=== PATIENT | male | born 1945 | race Caucasian/White ===

== ENCOUNTER 2021-05-25 12:00 | Inpatient (IN) | payer MEDICARE, OTHER ==
[~2021-05-25] VITALS: Ht 175.3 cm; Wt 86.7 kg
[~2021-05-25 12:00] MED LIST: ASPI-614 PO; ATOR20TA37 PO; CALC-455 PO; LISI40TA9 PO; LORA-439 PO; LORA-59 PO; OMEP40CA8 PO; RANI150C PO; SAW450CA7 PO; SIMV20TA19 PO; iron PO
[2021-05-25] MEDS ORDERED: SODIUM CHLORIDE FLUSH 10ML SYR IVF ONE (13:00)
[2021-05-25 13:14] LABS: BASOPHILS % (AUTO) 0 % (0-1); EOSINOPHILS % (AUTO) 0 % (1-7); LYMPHOCYTES % (AUTO) 5 % (22-44); MEAN CORPUSCULAR HEMOGLOBIN 34.3 pg (27.5-34.5); MEAN CORPUSCULAR HGB CONC 33.8 g/dL (33.2-36.2); MEAN PLATELET VOLUME 9.4 fL (7.4-10.4); MONOCYTES % (AUTO) 6 % (2-9); NEUTROPHILS % (AUTO) 89 % (42-75); PLATELET COUNT 129 x10^3/uL (130-400); RED BLOOD COUNT 3.63 x10^6/uL (4.38-5.82); RED CELL DISTRIBUTION WIDTH 16.2 % (9.4-14.8)
[2021-05-25 13:22] LABS: ALANINE AMINOTRANSFERASE 39 U/L (12-78); ALBUMIN 2.5 g/dL (3.4-5.0); ANION GAP 15 mmol/L (5-15); CALCIUM 9.2 mg/dL (8.5-10.1); CHLORIDE 107 mmol/L (98-107)
[2021-05-25 13:25] LABS: ALKALINE PHOSPHATASE 104 U/L (45-117); BILIRUBIN,TOTAL 4.4 mg/dL (0.2-1.0); CREATININE 1.27 mg/dL (0.7-1.3); TOTAL PROTEIN 7.9 g/dL (6.4-8.2)
[2021-05-25] MEDS ORDERED: SODIUM CHLORIDE 0.9% 1,000ML IVBOLUS ONE ×2 (13:30→15:30)
[2021-05-25] MEDS ORDERED: LORazepam 2 MG/ML, 1ML ONE ×2 (13:41→16:04)
[2021-05-25] MEDS ORDERED: PANTOPRAZOLE 40 MG IV ONE (13:42)
--- NOTE | 2021-05-25 13:47 | NUR ---
MEDICATED PER EMAR TO CT SCAN
[2021-05-25] MEDS ORDERED: LORazepam 2 MG/ML, 1ML IVPush ONE ×2 (14:00→16:00)
[2021-05-25] MEDS ORDERED: PANTOPRAZOLE 40 MG IV IVPush ONE (14:00)
[2021-05-25] MEDS ORDERED: SODIUM CHLORIDE 0.9%, 500ML IVBOLUS ONE (14:00)
--- NOTE | 2021-05-25 14:36 | NUR ---
WITH REASSESSMENT SHAKINESS/NAUSEA TOTALLY IMPROVED, 500ML NS COMPLETE PATIENT REMINDED OF NEED FOR [id number] UNABLE TO VOID-ERP AWARE
[2021-05-25] MEDS ORDERED: OMNIPAQUE 350 MG/ML, 100ML BOTTLE ONE (14:52)
--- NOTE | 2021-05-25 15:24 | NUR ---
PATIENT UP TO RESTROOM-MIKE BLACK STOOL-ERP AWARE
[2021-05-25] MEDS ORDERED: POTASSIUM CHLORIDE 20 MEQ, MAGNESIUM SULFATE 1 GM, MVI ADULT 10 ML, THIAMINE 200 MG, FO... IV ONE (16:00)
[2021-05-25] MEDS ORDERED: THIAMINE 100 MG in SODIUM CHLORIDE 0.9% 50 ML IV SCH (16:00)
[2021-05-25] MEDS ORDERED: THIAMINE 100 MG/ML, 2ML ONE ×2 (16:05→16:53)
--- NOTE | 2021-05-25 16:10 | NUR ---
DR. JUAN AT BEDSIDE TO ADMIT
[2021-05-25] MEDS ORDERED: MVI ADULT 10 ML, FOLIC ACID 1 MG, THIAMINE 100 MG, MAG SULFATE 4 MEQ, POTASSIUM CHLORID... IV SCH (16:30)
[2021-05-25] MEDS ORDERED: THIAMINE 200 MG in DEXTROSE 5% 50 ML IVPB ONE (16:30)
[2021-05-25] MEDS ORDERED: LORazepam 2 MG/ML, 1ML IV PRN ×4 (16:30)
[2021-05-25] MEDS ORDERED: LORazepam 1MG TABLET PO PRN ×4 (16:30)
[2021-05-25] MEDS ORDERED: hydrALAzine 20 MG/ML, 1ML IVPush PRN (16:30)
[2021-05-25] MEDS ORDERED: LABETALOL 5MG/ML, 20ML IVPush PRN (16:30)
[2021-05-25] MEDS ORDERED: ONDANSETRON 2MG/ML, 2ML IV PRN (16:30)
[2021-05-25] MEDS ORDERED: DIAZEPAM 5 MG TABLET ONE ×2 (16:53→17:02)
[2021-05-25] MEDS: DIAZEPAM 5 MG TABLET PO SCH ×2 (17:03→22:53)
[2021-05-25 17:13] LABS: INTERNATIONAL NORMALIZED RATIO 1.7 (0.93-1.1); PROTHROMBIN TIME 17.7 Seconds (9.6-11.5)
--- NOTE | 2021-05-25 18:51 | NUR ---
RECIEVED REPORT FROM WILMAR MEZA
--- NOTE | 2021-05-25 19:00 | NUR ---
patient transferred to hospital bed report to you mckeon
--- NOTE | 2021-05-25 19:10 | NUR ---
roughy 600ml of tarry stool noted from multiple bms while in er (notated in i/os)
--- NOTE | 2021-05-25 20:00 | NUR ---
PATIENT WAS UP TO BEDSIDE CAMMODE WITHOUT ASSISTANCE. PATIENT WAS ASSISTED BACK INTO BED AND BED ALARM WAS SET. PATIENT INSTRUCTED TO CALL WHEN HE NEEDS TO GET UP.
--- NOTE | 2021-05-25 20:26 | NUR ---
PATIENT OOB ON OWN, INSTURCTED ONCE AGAIN TO CALL FOR ASSISTANCE AND NOT GET UP ON OWN. PATIENT VERBALIZED HIS UNDERSTANDING.
--- NOTE | 2021-05-25 20:30 | NUR ---
attempt x1 to call saige for report.
--- NOTE | 2021-05-25 20:52 | NUR ---
Pt to be admitted to tele 2, room 491-1. Report called to Alee.
[2021-05-25 21:45] VITALS: BP 132/73
[2021-05-25] MEDS: PANTOPRAZOLE 40 MG IV IVPush SCH (22:53)
[2021-05-25] MEDS: ATORVASTATIN 20 MG TABLET PO SCH (22:53)
[2021-05-25 23:39] LABS: MICROSCOPIC NOT IND
[2021-05-26 02:03] VITALS: BP 117/71
[2021-05-26 03:56] LABS: ANION GAP 8 mmol/L (5-15); CHLORIDE 112 mmol/L (98-107)
[2021-05-26 04:00] LABS: ALANINE AMINOTRANSFERASE 33 U/L (12-78); ALKALINE PHOSPHATASE 78 U/L (45-117); BILIRUBIN,TOTAL 2.4 mg/dL (0.2-1.0); CREATININE 0.86 mg/dL (0.7-1.3); TOTAL PROTEIN 6.3 g/dL (6.4-8.2)
[2021-05-26] MEDS: DIAZEPAM 5 MG TABLET PO SCH ×4 (04:28→22:26)
[2021-05-26] MEDS ORDERED: MAGNESIUM SULFATE 1 GM in SODIUM CHLORIDE 0.9% 50 ML IV ONE (07:00)
[2021-05-26] MEDS ORDERED: MAGNESIUM SULFATE/D5W 100 ML IVPB ONE (07:00)
[2021-05-26 07:15] VITALS: BP 104/65
[2021-05-26] MEDS: PANTOPRAZOLE 40 MG IV IVPush SCH ×2 (10:30→21:00)
[2021-05-26] MEDS: POTASSIUM CHLORIDE 20 MEQ TAB.ER.PRT PO SCH (10:31)
[2021-05-26] MEDS: MVI ADULT 10 ML, FOLIC ACID 1 MG, THIAMINE 100 MG, MAG SULFATE 4 MEQ, POTASSIUM CHLORID... IV SCH (12:55)
[2021-05-26 13:06] VITALS: BP 122/75
[2021-05-26 18:52] VITALS: BP 128/76
[2021-05-26] MEDS: ATORVASTATIN 20 MG TABLET PO SCH (21:00)
[2021-05-27 00:32] VITALS: BP 132/73
[2021-05-27] MEDS: DIAZEPAM 5 MG TABLET PO SCH ×4 (04:53→22:54)
[2021-05-27 06:26] LABS: CHLORIDE 112 mmol/L (98-107)
[2021-05-27 06:31] LABS: ANION GAP 10 mmol/L (5-15); CALCIUM 8.3 mg/dL (8.5-10.1); CREATININE 0.84 mg/dL (0.7-1.3)
[2021-05-27] MEDS ORDERED: LACTATED RINGERS 500 ML IVBOLUS ONE (07:00)
[2021-05-27 07:36] VITALS: BP 128/77
[2021-05-27] MEDS: POTASSIUM CHLORIDE 20 MEQ TAB.ER.PRT PO SCH (08:51)
[2021-05-27] MEDS: PANTOPRAZOLE 40 MG IV IVPush SCH ×2 (08:51→20:31)
[2021-05-27] MEDS: THIAMINE 100 MG in DEXTROSE 5% 50 ML IVPB SCH (10:31)
[2021-05-27] MEDS: MVI ADULT 10 ML, FOLIC ACID 1 MG, THIAMINE 100 MG, MAG SULFATE 4 MEQ, POTASSIUM CHLORID... IV SCH (10:31)
[2021-05-27 14:18] VITALS: BP 131/78
[2021-05-27 15:52] LABS: ANION GAP 10 mmol/L (5-15); CALCIUM 8.4 mg/dL (8.5-10.1); CHLORIDE 110 mmol/L (98-107); CREATININE 0.96 mg/dL (0.7-1.3)
[2021-05-27 19:14] VITALS: BP 135/78
[2021-05-27] MEDS: ATORVASTATIN 20 MG TABLET PO SCH (20:31)
[2021-05-28 00:47] VITALS: BP 121/70
[2021-05-28] MEDS: DIAZEPAM 5 MG TABLET PO SCH ×2 (05:28→08:51)
[2021-05-28 06:30] LABS: BASOPHILS % (AUTO) 1 % (0-1); EOSINOPHILS % (AUTO) 2 % (1-7); LYMPHOCYTES % (AUTO) 11 % (22-44); MEAN CORPUSCULAR HGB CONC 34.7 g/dL (33.2-36.2); MEAN PLATELET VOLUME 9.7 fL (7.4-10.4); MONOCYTES % (AUTO) 9 % (2-9); NEUTROPHILS % (AUTO) 78 % (42-75); PLATELET COUNT 78 x10^3/uL (130-400); RED BLOOD COUNT 3.08 x10^6/uL (4.38-5.82); RED CELL DISTRIBUTION WIDTH 15.8 % (9.4-14.8)
[2021-05-28 06:41] LABS: ANION GAP 9 mmol/L (5-15); CALCIUM 8.1 mg/dL (8.5-10.1); CHLORIDE 112 mmol/L (98-107); CREATININE 0.84 mg/dL (0.7-1.3)
[2021-05-28 07:08] VITALS: BP 124/79
[2021-05-28] MEDS ORDERED: LACTATED RINGERS 1,000 ML IVBOLUS ONE (08:30)
[2021-05-28] MEDS: THIAMINE 100 MG in DEXTROSE 5% 50 ML IVPB SCH (08:51)
[2021-05-28] MEDS: POTASSIUM CHLORIDE 20 MEQ TAB.ER.PRT PO SCH (08:51)
[2021-05-28] MEDS: PANTOPRAZOLE 40 MG IV IVPush SCH (08:51)
[2021-05-28 12:16] LABS: ANION GAP 11 mmol/L (5-15); CALCIUM 8.6 mg/dL (8.5-10.1); CHLORIDE 109 mmol/L (98-107); CREATININE 1.01 mg/dL (0.7-1.3)
[2021-05-28] MEDS: MVI ADULT 10 ML, FOLIC ACID 1 MG, THIAMINE 100 MG, MAG SULFATE 4 MEQ, POTASSIUM CHLORID... IV SCH (12:41)
[2021-05-28] MEDS ORDERED: PANT40TA3 PO (20:00)
== END 2021-05-28 13:38 | disposition left against medical advice (07) | DRG 378 ==
LOC: ED 15:59 → SUATTDRO 16:02 → EDIP 16:40 → 4EST 21:14 → 4WST 05-26 00:20
PROVIDERS: ADMIT Family Medicine; ATTEND Family Medicine
DX: K92.2 Gastrointestinal hemorrhage, unspecified (principal); D62 Acute posthemorrhagic anemia; E87.2 Acidosis; F10.239 Alcohol dependence with withdrawal, unspecified; A08.4 Viral intestinal infection, unspecified; Z66 Do not resuscitate; N32.0 Bladder-neck obstruction; I10 Essential (primary) hypertension; I25.10 Atherosclerotic heart disease of native coronary artery without angina pectoris; E78.5 Hyperlipidemia, unspecified; K21.9 Gastro-esophageal reflux disease without esophagitis; D53.9 Nutritional anemia, unspecified; K70.9 Alcoholic liver disease, unspecified; Z90.49 Acquired absence of other specified parts of digestive tract; Z87.19 Personal history of other diseases of the digestive system; Z87.891 Personal history of nicotine dependence
CPT/HCPCS: 36415; 74177; 80048; 80053; 81003; 82140; 83690; 83735; 85014; 85018; 85025; 85610; 86850; 86900; 93005; 96361; 96374; 96375; 99285; G0378; J3411; J3475; J3480; J7120; Q9967; C9113; J2060; J7030; J7040